=== PATIENT | female | born 1985 | race Caucasian/White ===

== ENCOUNTER 2023-12-11 08:37 | Emergency (ER) | payer BC ==
[2023-12-11] MEDS: IBUPROFEN 600 MG TABLET (FP) PO ONE (09:01)
[2023-12-11 09:43] VITALS: BP 122/72; PULSE 68; RESP 16; TEMP 98.3
== END 2023-12-11 10:04 | disposition home or self-care (01) ==
LOC: FER 08:37
DX: S93.401A Sprain of unspecified ligament of right ankle, initial encounter (principal); X50.1XXA Overexertion from prolonged static or awkward postures, initial encounter
CPT/HCPCS: 73610-TC-RT-FY; 73630-TC-RT-FY; 99283-25